=== PATIENT | female | born 1970 | race Caucasian/White ===

== ENCOUNTER 2017-10-23 05:35 | Emergency (ER) | payer BC ==
--- NOTE | 2017-10-23 06:04 | ED Physician Documentation ---
PD HPI SYNCOPE - Stated complaint Stated Complaint: FALL/SYNCOPE - Chief complaint Chief Complaint: Neuro - History obtained from History obtained from: Patient - History of Present Illness Witnessed: Unwitnessed Associated symptoms: None Injury occurred: Head injury Recently seen: Not recently seen - Additional information Additional information: Patient had some vodka last night. Early this morning, while sitting on the toilet, she fell asleep. This resulted in her falling forward, and she struck her face on the floor. She then got up and went to her bed, and while sitting on the edge of the bed, she slipped off, possibly due to falling asleep again, but did not sustain any injury. her chief complaint is neck pain that started when she fell off toilet. Review of Systems Eyes: reports: Reviewed and negative Cardiac: reports: Reviewed and negative GI: reports: Reviewed and negative Musculoskeletal: reports: Neck pain. denies: Back pain, Extremity pain Neurologic: reports: Head injury. denies: Focal weakness, Numbness, Confused, Altered mental status, Headache PD PAST MEDICAL HISTORY - Past Medical History Past Medical History: No - Allergies Allergies/Adverse Reactions: Allergies Allergy/AdvReac Type Severity Reaction Status Date / Time ciprofloxacin [From Cipro] AdvReac joint pain Verified 10/23/17 05:51 Sulfa (Sulfonamide AdvReac Hives Verified 10/23/17 05:50 Antibiotics) - Social History Does the pt smoke?: No PD ED PE NORMAL - Vitals Vital signs reviewed: Yes - General General: Alert and oriented X 3, No acute distress, Well developed/nourished - HEENT HEENT: PERRL, EOMI, Moist mucous membranes - Neck Neck: Other (mild midline , mid-level bony tenderness without step-off ) - Cardiac Cardiac: RRR, No murmur - Respiratory Respiratory: No respiratory distress, Clear bilaterally PD ED PE EXPANDED - HEENT HEENT: Other (.5 cm superficial horizontal abrasion philtrum) Results - Vitals Vitals: Oxygen O2 Source Room air - Rads (name of study) CT cervical spine Radiology: Prelim report reviewed, See rad report PD MEDICAL DECISION MAKING - ED course Complexity details: reviewed results, re-evaluated patient, considered differential, d/w patient Departure - Departure Disposition: 01 Home, Self Care Clinical Impression: Cervical strain Condition: Good Instructions: ED Sprain Strain Neck Discharge Date/Time: 10/23/17 08:15
--- NOTE | 2017-10-23 07:43 | CT Report ---
EXAM: CT CERVICAL SPINE WITHOUT CONTRAST DATE: 10/23/2017 07:19 AM. HISTORY: Fall, neck pain. COMPARISONS: None. TECHNIQUE: Thin-section axial images were acquired of the cervical spine without contrast. Post-proce ssing: Coronal and sagittal reformats. Other: None. In accordance with CT protocol optimization, one or more of the following dose reduction techniques w ere utilized for this exam: automated exposure control, adjustment of mA and/or KV based on patient s ize, or use of iterative reconstructive technique. FINDINGS: Alignment: There is subtle reversal of the normal lordotic curvature of the cervical spine which may be positional. Bones: Well-corticated bony fragment at the tip of the dens is thought to be chronic in nature. Interspace Levels/Facets: C1-C2: Unremarkable. C2-C3: Unremarkable. C3-C4: Unremarkable. C4-C5: Unremarkable. C5-C6: Severe degenerative disk disease with uncal hypertrophy and severe right neural foraminal narr owing. C6-C7: Unremarkable. C7-T1: Unremarkable. Musculature: Normal. No fatty atrophy. Other: The paravertebral and prevertebral soft tissues are unremarkable. The lung apices are clear. IMPRESSION: 1. No acute cervical spine fracture. 2. Well-corticated bony fragment at the tip of the dens is thought to be chronic in nature. 3. Severe degenerative disk disease with uncal hypertrophy and severe right neural foraminal narrowin g at C5-C6. [facility] Referring Provider Line: [phone] SITE ID: [id number]
[2017-10-23 08:15] VITALS: BP 128/74
== END 2017-10-23 08:15 | disposition home or self-care (01) ==
LOC: ED 05:35
DX: S16.1XXA Strain of muscle, fascia and tendon at neck level, initial encounter (principal); S00.81XA Abrasion of other part of head, initial encounter; M50.322 Other cervical disc degeneration at C5-C6 level; W18.12XA Fall from or off toilet with subsequent striking against object, initial encounter
CPT/HCPCS: 72125; 99282; 99283

== ENCOUNTER 2017-12-20 14:34 | Emergency (ER) | payer BC ==
[2017-12-20 14:57] VITALS: BP 139/91
[2017-12-20 15:35] LABS: BILIRUBIN,URINE NEGATIVE (NEGATIVE); GLUCOSE, URINE (UA) NEGATIVE (NEGATIVE); KETONES,URINE (UA) NEGATIVE (NEGATIVE); LEUKOCYTE ESTERASE, URINE LARGE (NEGATIVE); NITRITE,URINE NEGATIVE (NEGATIVE); OCCULT BLOOD,URINE LARGE (NEGATIVE); PROTEIN,URINE TRACE mg/dL (NEGATIVE); UROBILINOGEN,URINE 0.2 (NORMAL) E.U./dL (NORMAL)
[2017-12-20 15:39] LABS: CLARITY,URINE CLOUDY (CLEAR); HCG UR QUAL NEGATIVE
[2017-12-20 15:42] LABS: BACTERIA,URINE Many /HPF (None Seen); RBC,URINE TNTC /HPF (0-5); SQUAMOUS EPITHELIAL CELL,UR NONE SEEN (<= Few)
--- NOTE | 2017-12-20 16:17 | ED Physician Documentation ---
PD HPI FEMALE - Stated complaint Stated Complaint: ABD PX/FEM - Chief complaint Chief Complaint: UTI - History obtained from History obtained from: Patient - History of Present Illness Timing - onset: Yesterday Timing - duration: Days (2) Timing - details: Abrupt onset, Still present Associated symptoms: Dysuria, Urinary frequency. No: Fever, Abdominal pain, Back pain, Vaginal discharge, Genital sore/lesion Contributing factors: No: Exposed to STD Similar symptoms before: Diagnosis (uti) Recently seen: Not recently seen Review of Systems Constitutional: denies: Fever, Chills GI: denies: Vomiting : denies: Discharge Musculoskeletal: denies: Back pain PD PAST MEDICAL HISTORY - Past Medical History Cardiovascular: None Respiratory: None Neuro: Fainting Endocrine/Autoimmune: HyPOthyroidism, Systemic lupus erythematosus : None HEENT: None Psych: Depression Musculoskeletal: None Derm: None - Past Surgical History Past Surgical History: Yes Ortho: Carpal Tunnel surgery, 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 - Present Medications Home Medications: Ambulatory Orders Medication Instructions Recorded Confirmed Cephalexin [Keflex] 500 mg PO TID #20 capsule 12/20/17 Phenazopyridine [Pyridium] 200 mg PO TID PRN #15 tablet 12/20/17 - Allergies Allergies/Adverse Reactions: Allergies Allergy/AdvReac Type Severity Reaction Status Date / Time ciprofloxacin [From Cipro] AdvReac joint pain Verified 12/20/17 14:57 Sulfa (Sulfonamide AdvReac Hives Verified 12/20/17 14:57 Antibiotics) - Social History Does the pt smoke?: No Smoking Status: Never smoker Does the pt drink ETOH?: Yes Does the pt have substance abuse?: No - Immunizations Immunizations are current?: Yes Immunizations: TDAP current <10years - POLST Patient has POLST: No PD ED PE NORMAL - Vitals Vital signs reviewed: Yes - General General: Alert and oriented X 3, No acute distress, Well developed/nourished - Abdomen Abdomen: Soft, Non tender - Female Female : Deferred - Rectal Rectal: Deferred - Back Back: No CVA TTP - Derm Derm: Normal color, Warm and dry, No rash Results - Vitals Vitals: Oxygen O2 Source Room air - Labs Labs: Microbiology 12/20/17 15:05 Urine Culture - Preliminary Urine,Clean Catch CULTURE IN PROGRESS. RESULTS TO FOLLOW. Laboratory Tests 12/20/17 15:05 Urine Color YELLOW Urine Clarity CLOUDY Urine pH 6.0 Ur Specific [place] <=1.005 Urine Protein TRACE Urine Glucose (UA) NEGATIVE Urine Ketones NEGATIVE Urine Occult Blood LARGE H Urine Nitrite NEGATIVE Urine Bilirubin NEGATIVE Urine Urobilinogen 0.2 (NORMAL) Ur Leukocyte Esterase LARGE H Urine RBC TNTC H Urine WBC >25 H Ur Squamous Epith Cells NONE SEEN Urine Bacteria Many H Ur Microscopic Review INDICATED Urine Culture Comments INDICATED Urine HCG, Qual NEGATIVE PD MEDICAL DECISION MAKING - ED course Complexity details: reviewed results (UA is positive correlating with symptoms.) , considered differential, d/w patient - Sepsis Event Vital Signs: Oxygen O2 Source Room air Departure - Departure Disposition: Home, Self Care Clinical Impression: Urinary tract infection Qualifiers: Urinary tract infection type: acute cystitis Hematuria presence: without hematuria Qualified Code(s): N30.00 - Acute cystitis without hematuria Condition: Stable Record reviewed to determine appropriate education?: Yes Instructions: ED UTI Cystitis Female Follow-Up: Kiara Albert ARNP [Primary Care Provider] - Prescriptions: Cephalexin [Keflex] 500 mg PO TID #20 capsule Phenazopyridine [Pyridium] 200 mg PO TID PRN #15 tablet PRN Reason: Pain Comments: Drink lots of fluids. Tylenol or ibuprofen if needed for pains. He can use phenazopyridine if needed for discomfort of urination. Keflex as directed for the infection. Recheck if not improving over the next few days. Discharge Date/Time: 12/20/17 16:39
[2017-12-20] MEDS ORDERED: IBUPROFEN 400 MG TABLET PO STA (16:26)
[2017-12-20] MEDS ORDERED: cephALEXin 250 MG CAPSULE PO STA (16:26)
== END 2017-12-20 16:39 | disposition home or self-care (01) ==
LOC: ED 14:34
DX: N30.00 Acute cystitis without hematuria (principal)
CPT/HCPCS: 81001; 81025; 87086; 99283; A9270; 81003

== ENCOUNTER 2020-06-28 20:53 | Emergency (ER) | payer BC ==
[2020-06-28] MEDS ORDERED: ONDANSETRON 4 MG/2 ML VIAL IVP STA (21:07)
[2020-06-28] MEDS ORDERED: SODIUM CHLORIDE 0.9% 1,000 ML IV STA (21:07)
[2020-06-28 21:20] LABS: BASOPHILS % (AUTO) 0.3 %; HGB - HEMOGLOBIN 13.4 g/dL (12.0-16.0); LYMPHOCYTES # (AUTO) 0.5 10^3/uL (1.5-3.5); LYMPHOCYTES % (AUTO) 15.3 %; MEAN CORPUSCULAR HGB CONC 33.8 g/dL (32.0-36.0); MEAN CORPUSCULAR VOLUME 100.5 fL (81.0-99.0); MEAN PLATELET VOLUME 8.7 fL (7.9-10.8); MONOCYTES # (AUTO) 0.4 10^3/uL (0.0-1.0); MONOCYTES % (AUTO) 13.3 %; NEUTROPHILS # (AUTO) 2.2 10^3/uL (1.5-6.6); NEUTROPHILS % (AUTO) 70.8 %; PLT - PLATELET COUNT 163 10^3/uL (130-450); RED BLOOD COUNT 3.94 10^6/uL (4.20-5.40); RED CELL DISTRIBUTION WIDTH 12.6 % (12.0-15.0); WHITE BLOOD COUNT 3.1 x10^3/uL (4.8-10.8)
[2020-06-28 21:33] LABS: ALBUMIN 4.9 g/dL (3.2-5.5); ALBUMIN/GLOBULIN RATIO 1.4 (1.0-2.2); BILIRUBIN,TOTAL 1.3 mg/dL (0.2-1.0); CALCIUM 9.8 mg/dL (8.5-10.3); CREATININE 0.8 mg/dL (0.4-1.0); TOTAL PROTEIN 8.4 g/dL (6.7-8.2)
[2020-06-28] MEDS ORDERED: FOLIC ACID INJ 1 MG, THIAMINE INJ 100 MG, MAGNESIUM SULFATE 2 GM, MULTIVITAMIN 10 ML in... IV STA ×5 (22:34)
[2020-06-28] MEDS ORDERED: LORazepam 2 MG/ML VIAL IVP STA (22:35)
--- NOTE | 2020-06-28 22:37 | ED Physician Documentation ---
PD HPI NVD - Stated complaint Stated Complaint: VOMITING/DIZZY - Chief complaint Chief Complaint: Abd Pain - History obtained from History obtained from: Patient - History of Present Illness Timing - onset: How many days ago (2) Timing - duration: Days (2) Timing - details: Gradual onset, Still present Associated symptoms: Other (chills). No: Fever, Abdominal pain, Chest pain, Hematemesis Contributing factors: Alcohol use, Other (has shoulder injury and is out of work taking ibuprofen) Improved by: Vomiting, BM Similar symptoms before: Has not had sx before Recently seen: Not recently seen - Additonal information Additional information: 49-year-old female who works for the [employer] has been out of work since with a shoulder injury. 2 days ago she developed nausea and vomiting and has had persistence of vomiting for 2 days. She had been constipated for about 1 week and today she had a normal bowel movement. She has not had abdominal pain with this. She has been using some ibuprofen but has not taken any in over a week and she does drink alcohol states that she has not had a drink in 2 days and usually she has 2 drinks a night. Review of Systems Constitutional: denies: Fever Eyes: denies: Decreased vision Ears: denies: Ear pain Nose: denies: Rhinorrhea / runny nose, Congestion Throat: denies: Sore throat Cardiac: denies: Chest pain / pressure, Palpitations Respiratory: denies: Dyspnea, Cough GI: reports: Nausea, Vomiting, Constipation. 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 - Present Medications Home Medications: Ambulatory Orders Medication Instructions Recorded Confirmed Levothyroxine [Synthroid] 75 05/31/18 Losartan [Cozaar] 0 mg 05/31/18 buPROPion [Wellbutrin Sr] 1 05/31/18 cephALEXin [Keflex] 500 mg PO Q6H #24 capsule 12/25/18 traMADol [Ultram] 50 05/31/18 LORazepam [Ativan] 1 - 2 mg PO Q6HR PRN #20 tablet 06/29/20 Ondansetron Odt [Zofran] 4 mg TL Q6H PRN #10 tablet 06/29/20 - Allergies Allergies/Adverse Reactions: Allergies Allergy/AdvReac Type Severity Reaction Status Date / Time ciprofloxacin [From Cipro] AdvReac joint pain Verified 06/28/20 21:07 Sulfa (Sulfonamide AdvReac Hives Verified 06/28/20 21:07 Antibiotics) - Social History Does the pt smoke?: No Smoking Status: Never smoker Does the pt drink ETOH?: Yes Does the pt have substance abuse?: No - Immunizations Immunizations are current?: Yes Immunizations: TDAP current <10years - POLST Patient has POLST: No PD ED PE NORMAL - Vitals Vital signs reviewed: Yes (tachy and hypertensive ) - General General: Alert and oriented X 3, Well developed/nourished, Other (appears anxious has "the shakes" seems more like withdrawal than "chills") - HEENT HEENT: Atraumatic, PERRL, EOMI - Neck Neck: Supple, no meningeal sign, No bony TTP - Cardiac Cardiac: No murmur, Other (tachy to 100) - Respiratory Respiratory: No respiratory distress, Clear bilaterally - Abdomen Abdomen: Normal bowel sounds, Soft, Non tender, Non distended, No organomegaly - Back Back: No CVA TTP, No spinal TTP - Derm Derm: Normal color, Warm and dry, No rash - Extremities Extremities: No deformity, No edema - Neuro Neuro: Alert and oriented X 3, director of vital statistics 2-12 intact, No motor deficit, No sensory deficit, Normal speech Eye Opening: Spontaneous Motor: Obeys Commands Verbal: Oriented GCS Score: 15 - Psych Psych: Normal mood, Normal affect Results - Vitals Vitals: Vital Signs - 24 hr 06/28/20 06/28/20 06/28/20 21:05 21:06 21:37 Temperature 37.1 C 37.1 C 37.1 C Heart Rate 102 H 102 H 100 Respiratory 17 17 17 Rate Blood Pressure 153/85 H 153/85 H 145/86 H O2 Saturation 100 100 06/28/20 23:06 Temperature 37.1 C Heart Rate 98 Respiratory 16 Rate Blood Pressure 138/85 H O2 Saturation 97 Oxygen O2 Source Room air - Labs Labs: Laboratory Tests 06/28/20 06/28/20 21:14 21:14 WBC 3.1 L RBC 3.94 L Hgb 13.4 Hct 39.6 MCV 100.5 H MCH 34.0 H MCHC 33.8 RDW 12.6 Plt Count 163 MPV 8.7 Neut # (Auto) 2.2 Lymph # (Auto) 0.5 L [place] # (Auto) 0.4 Eos # (Auto) 0.0 Baso # (Auto) 0.0 Absolute Nucleated RBC 0.00 Nucleated RBC % 0.0 Sodium 136 Potassium 4.1 Chloride 88 L Carbon Dioxide 31 Anion Gap 17.0 H BUN 8 Creatinine 0.8 Estimated GFR (MDRD) 77 L Glucose 128 H Calcium 9.8 Total Bilirubin 1.3 H AST 105 H ALT 95 H Alkaline Phosphatase 89 Total Protein 8.4 H Albumin 4.9 Globulin 3.5 Albumin/Globulin Ratio 1.4 Lipase 36 Procedures - IVC sono (time) 2119 Bedside IVC sono: IVC measures (cm) (0.88), Dehydration (est 2 liter deficit) PD MEDICAL DECISION MAKING - ED course Complexity details: reviewed old records, reviewed results, re-evaluated patient, considered differential, d/w patient ED course: 49-year-old female presents with nausea and vomiting and of 2 days duration appears dehydrated on interrogation the inferior vena cava. She is administered saline feels some improved and she is noted to have shakes and there is evidence of excessive alcohol consumption both by history and by laboratory evaluation of the liver functions. I shared the laboratory evaluation of liver functions with the patient and indicated to her that I thought she might benefit from treatment of withdrawal and she agreed. We have administered a banana bag and Ativan as well. Departure - Departure Disposition: 01 Home, Self Care Clinical Impression: Vomiting Qualifiers: Vomiting type: unspecified Vomiting Intractability: non-intractable Nausea presence: with nausea Qualified Code(s): R11.2 - Nausea with vomiting, unspecified Alcohol withdrawal Qualifiers: Complication of substance-induced condition: uncomplicated Qualified Code(s): F10.230 - Alcohol dependence with withdrawal, uncomplicated Condition: Stable Instructions: ED Diet Vomiting Diarrhea, ED Withdrawal Alcohol Follow-Up: Kiara Albert ARNP [Primary Care Provider] - Prescriptions: LORazepam [Ativan] 1 - 2 mg PO Q6HR PRN #20 tablet PRN Reason: withdrawal Ondansetron Odt [Zofran] 4 mg TL Q6H PRN #10 tablet PRN Reason: Nausea / Vomiting
[2020-06-28] MEDS ORDERED: MAGNESIUM SULFATE 1 GM/2 ML VIAL ONE (22:49)
[2020-06-28] MEDS ORDERED: FOLIC ACID 5 MG/1 ML 10ML MDV ONE (22:49)
[2020-06-28] MEDS ORDERED: THIAMINE 100 MG/1 ML 2 ML MDV ONE (22:49)
[2020-06-29] MEDS ORDERED: ONDANSETRON ODT 4 MG Prepack 2 TL PRN (00:52)
[2020-06-29 01:10] VITALS: BP 136/79
== END 2020-06-29 01:08 | disposition home or self-care (01) ==
LOC: ED 20:53
DX: F10.230 Alcohol dependence with withdrawal, uncomplicated (principal); E86.0 Dehydration; R11.10 Vomiting, unspecified
CPT/HCPCS: 80053; 83690; 85025; 96361; 96365; 96375; 99284; J2060; J3411; 36415

== ENCOUNTER 2021-04-30 14:17 | Outpatient (CLI) | payer BC ==
[2021-04-30 14:37] LABS: BASOPHILS % (AUTO) 0.5 %; HCT - HEMATOCRIT 40.5 % (37.0-47.0); LYMPHOCYTES # (AUTO) 0.3 10^3/uL (1.5-3.5); LYMPHOCYTES % (AUTO) 17.7 %; MEAN CORPUSCULAR HEMOGLOBIN 35.4 pg (27.0-31.0); MEAN CORPUSCULAR HGB CONC 34.6 g/dL (32.0-36.0); MEAN CORPUSCULAR VOLUME 102.3 fL (81.0-99.0); MEAN PLATELET VOLUME 8.6 fL (7.9-10.8); MONOCYTES # (AUTO) 0.5 10^3/uL (0.0-1.0); MONOCYTES % (AUTO) 24.2 %; NEUTROPHILS # (AUTO) 1.1 10^3/uL (1.5-6.6); NEUTROPHILS % (AUTO) 57.1 %; PLT - PLATELET COUNT 243 10^3/uL (130-450); RED BLOOD COUNT 3.96 10^6/uL (4.20-5.40); RED CELL DISTRIBUTION WIDTH 11.9 % (12.0-15.0)
[2021-04-30 14:48] LABS: WHITE BLOOD COUNT 1.9 x10^3/uL (4.8-10.8)
[2021-04-30 14:52] LABS: ALBUMIN 4.8 g/dL (3.2-5.5); ALBUMIN/GLOBULIN RATIO 1.4 (1.0-2.2); ALKALINE PHOSPHATASE 68 IU/L (42-121); ALT ALANINE AMINOTRANSFERASE 30 IU/L (10-60); AST ASPARTATE AMINOTRANSFERASE 41 IU/L (10-42); BILIRUBIN,TOTAL 0.9 mg/dL (0.2-1.0); BUN - BLOOD UREA NITROGEN < 5 mg/dL (6-20); CALCIUM 9.2 mg/dL (8.5-10.3); CARBON DIOXIDE - CO2 30 mmol/L (21-32); CHLORIDE 88 mmol/L (101-111); CREATININE 0.6 mg/dL (0.4-1.0); CRP - C-REACTIVE PROTEIN < 1.0 mg/dL (0-1.0); GFR - MDRD 106 (>89); GLUCOSE 105 mg/dL (70-100); POTASSIUM 3.7 mmol/L (3.5-5.0); SODIUM 129 mmol/L (135-145); TOTAL PROTEIN 8.2 g/dL (6.7-8.2)
[2021-05-02 13:01] LABS: DNA (DS) ANTIBODY 6 IU/mL
[2021-05-02 13:21] LABS: COMPLEMENT COMPONENT C3C 93 mg/dL (83-193); COMPLEMENT COMPONENT C4C 19 mg/dL (15-57)
== END 2021-04-30 14:18 | disposition home or self-care (01) ==
LOC: LAB 14:17
PROVIDERS: ATTEND Internal Medicine Rheumatology
DX: M32.9 Systemic lupus erythematosus, unspecified (principal)
CPT/HCPCS: 36415; 80053; 85025; 85651; 86140; 86160; 86225

== ENCOUNTER 2021-08-11 16:30 | Outpatient (CLI) | payer BC | END 2021-08-11 23:59 | disposition home or self-care (01) | LOC: LAB.S 16:30 | PROVIDERS: ATTEND Physician Assistant Medical | DX: R68.83 Chills (without fever) (principal); R11.2 Nausea with vomiting, unspecified; Z20.822 Contact with and (suspected) exposure to COVID-19 ==

== ENCOUNTER 2021-11-17 08:00 | Outpatient (CLI) | payer BC ==
--- NOTE | 2021-11-17 16:44 | XRAY Report ---
PROCEDURE: Shoulder 3 View LT INDICATIONS: STRAIN OF LEFT SHOULDER TECHNIQUE: 4 views of the shoulder were acquired. COMPARISON: None. FINDINGS: Bones: No fractures or dislocations. Mild degenerative changes are present at the acromioclavicular joint. There are small inferior humeral head osteophytes. No suspicious bony lesions. Visualized rib s appear intact. Soft tissues: No suspicious soft tissue calcifications. IMPRESSION: Degenerative change of the acromioclavicular and glenohumeral joint. No acute radiograph ic findings. Reviewed by: Laura Anderson MD on 11/17/2021 4:43 PM PDT Approved by: Laura Anderson MD on 11/17/2021 4:43 PM PDT Station ID: [id number]
== END 2021-11-17 23:59 | disposition home or self-care (01) ==
LOC: DI.S 08:00
PROVIDERS: ATTEND Emergency Medicine
DX: M19.012 Primary osteoarthritis, left shoulder (principal)

== ENCOUNTER 2022-01-07 17:36 | Emergency (ER) | payer BC ==
[2022-01-07] MEDS ORDERED: SODIUM CHLORIDE 0.9% 1,000 ML IV STA (17:45)
--- OUTSIDE RECORDS SUMMARY | 2022-01-07 18:12 | EXTERNAL MEDICAL SUMMARY RPT | Continuity of Care Document ---
:1970 Author Organization [place] Address [address] [place] [address] Phone Allergies and Intolerances date description facility type (no date) [facility] Encounters No information. Functional Status No information. Immunizations No information. Medications No information. Problems No information. Procedures date description facility [id number] Visit Code Hold [facility] [phone] Visit Code Hold [facility] [phone] XR SHOULDER 2-3 VIEW [facility] Results/Labs No information. Social History date description facility [id number] Never smoker [facility] [phone] Never smoker [facility] Vital Signs date measurement value units [id number]+0000 BMI BMI 26.98 kg/m2 [id number]+0000 BP_diastolic BP_diastolic 87 mm[H g] [id number]+0000 BP_systolic BP_systolic 139 mm[Hg] [id number]+0000 heart_rate heart_rate 102 /min 15515599610519+0000 height_metric height_metric 157.48 cm [id number]+0000 height_standard height_standard 62 in [id number]+0000 respiration_rate respiration_rate 16 /min [id number]+0000 temperature_metric temperature_metric 36.44 C [id number]+0000 temperature_standard temperature_standard 9 7.6 F [id number]+0000 weight_metric weight_metric 66.68 kg 53418463616513+0000 weight_standard weight_standard 147 lb [id number]+0000 BMI BMI 26.62 kg/m2 25331771731348+0000 BP_diastolic BP_diastolic 91 mm[H g] 30669507861323+0000 BP_systolic BP_systolic 148 mm[Hg] +0000 heart_rate heart_rate 93 /min +0000 height_metric height_metric 157.48 cm +0000 height_standard height_standard 62 in +0000 respiration_rate respiration_rate 16 /min +0000 temperature_metric temperature_metric 37 C +0000 temperature_standard temperature_standard 9 8.6 F +0000 weight_metric weight_metric 65.77 kg +0000 weight_standard weight_standard 145 lb
[2022-01-07] MEDS ORDERED: LACTATED RINGERS 1,000 ML IV STA (18:14)
--- NOTE | 2022-01-07 18:17 | ED Physician Documentation ---
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 Since then she developed vertigo and every time she sits up she is vomited. She went to her doctors today and they did labs which were notable for a creatinine of 2.7 and a GFR of 16, usually her kidney function is normal. She is actually feeling much better today with only minimal nausea. She denies pain. 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 - Present Medications Home Medications: Ambulatory Orders Medication Instructions Recorded Confirmed Levothyroxine [Synthroid] 75 05/31/18 Losartan [Cozaar] 0 mg 05/31/18 buPROPion [Wellbutrin Sr] 1 05/31/18 cephALEXin [Keflex] 500 mg PO Q6H #24 capsule 05/31/18 traMADol [Ultram] 50 05/31/18 LORazepam [Ativan] 1 - 2 mg PO Q6HR PRN #20 tablet 06/29/20 Ondansetron Odt [Zofran] 4 mg TL Q6H PRN #10 tablet 06/29/20 - Allergies Allergies/Adverse Reactions: Allergies Allergy/AdvReac Type Severity Reaction Status Date / Time ciprofloxacin [From Cipro] AdvReac joint pain Verified 01/07/22 17:57 Sulfa (Sulfonamide AdvReac Hives Verified 01/07/22 17:57 Antibiotics) - Social History Does the pt smoke?: No Smoking Status: Never smoker Does the pt drink ETOH?: Yes Does the pt have substance abuse?: No - Immunizations Immunizations are current?: Yes Immunizations: TDAP current <10years - POLST Patient has POLST: No PD ED PE NORMAL - Vitals Vital signs reviewed: Yes (Mild resting tachycardia) - General General: Alert and oriented X 3, No acute distress - HEENT HEENT: PERRL, EOMI, Ears normal, Dentition benign - Neck Neck: Supple, no meningeal sign, No bony TTP - Cardiac Cardiac: RRR, No murmur - Respiratory Respiratory: No respiratory distress, Clear bilaterally - Abdomen Abdomen: Soft, Non tender - Derm Derm: Normal color, Warm and dry - Extremities Extremities: No edema, No calf tenderness / cord - Neuro Neuro: Normal speech - Psych Psych: Normal mood, Normal affect Results - Vitals Vitals: Vital Signs - 24 hr 01/07/22 01/07/22 17:57 19:07 Temperature 37.3 C Heart Rate 103 H 96 Respiratory 18 16 Rate Blood Pressure 154/93 H 137/71 H O2 Saturation 100 98 Oxygen O2 Source Room air - Labs Labs: Laboratory Tests 01/07/22 01/07/22 18:21 18:21 WBC 3.0 L RBC 3.47 L Hgb 12.2 Hct 35.1 L MCV 101.2 H MCH 35.2 H MCHC 34.8 RDW 12.9 Plt Count 202 MPV 9.2 Neut # (Auto) 1.9 Lymph # (Auto) 0.6 L [place] # (Auto) 0.5 Eos # (Auto) 0.0 Baso # (Auto) 0.0 Absolute Nucleated RBC 0.00 Nucleated RBC % 0.0 Sodium 124 L Potassium 3.4 L Chloride 85 L Carbon Dioxide 27 Anion Gap 12.0 BUN 20 Creatinine 3.0 H Estimated GFR (MDRD) 17 L Glucose 96 Calcium 8.9 Phosphorus 2.4 L Magnesium 1.5 L Total Bilirubin 1.7 H AST 38 ALT 27 Alkaline Phosphatase 100 Total Protein 7.8 Albumin 4.6 Globulin 3.2 Albumin/Globulin Ratio 1.4 PD MEDICAL DECISION MAKING - ED course ED course: 51-year-old woman has been having vertigo and vomiting ever since iwona COVID a month ago. Now sent in by her physician with elevated creatinine today. Here her labs show creatinine out of proportion to her BUN with chronic lymphopenia. She is already feeling better and was hydrated here with 2 L of fluid. We discussed avoidance of NSAIDs and decreasing free water and adding sodium/potassium containing fluids. We also discussed the need for rapid follow-up and repeat labs, potential nephrology referral. Departure - Departure Disposition: 01 Home, Self Care Clinical Impression: RUDDY (acute kidney injury) Condition: Good Record reviewed to determine appropriate education?: Yes Instructions: ED Insufficiency Renal Comments: As discussed, your kidney function has gone downhill but I am not convinced that it is from dehydration because your BUN is high normal as opposed to I would expect it to be very high if the kidney issue was related to dehydration. It is a possibility that this could be related to her lupus or some other condition. Either way you need to have labs redrawn with your primary care physician I would say Wednesday or Wednesday. Until then, since her sodium was on the low side and your potassium was on the low side I would make sure to drink fluids other than plain water such as Gatorade or electrolyte mixture. Avoid nonsteroidal anti-inflammatory drugs (NSAIDs) such as ibuprofen/Aleve/naproxen/Motrin/Advil.
[2022-01-07 18:33] LABS: BASOPHILS % (AUTO) 0.3 %; HCT - HEMATOCRIT 35.1 % (37.0-47.0); HGB - HEMOGLOBIN 12.2 g/dL (12.0-16.0); LYMPHOCYTES # (AUTO) 0.6 10^3/uL (1.5-3.5); LYMPHOCYTES % (AUTO) 18.2 %; MEAN CORPUSCULAR HEMOGLOBIN 35.2 pg (27.0-31.0); MEAN CORPUSCULAR HGB CONC 34.8 g/dL (32.0-36.0); MEAN CORPUSCULAR VOLUME 101.2 fL (81.0-99.0); MEAN PLATELET VOLUME 9.2 fL (7.9-10.8); MONOCYTES # (AUTO) 0.5 10^3/uL (0.0-1.0); MONOCYTES % (AUTO) 17.2 %; NEUTROPHILS # (AUTO) 1.9 10^3/uL (1.5-6.6); PLT - PLATELET COUNT 202 10^3/uL (130-450); RED BLOOD COUNT 3.47 10^6/uL (4.20-5.40); RED CELL DISTRIBUTION WIDTH 12.9 % (12.0-15.0)
[2022-01-07 18:39] LABS: ALBUMIN 4.6 g/dL (3.2-5.5); ALBUMIN/GLOBULIN RATIO 1.4 (1.0-2.2); BILIRUBIN,TOTAL 1.7 mg/dL (0.2-1.0); CALCIUM 8.9 mg/dL (8.5-10.3); MAGNESIUM 1.5 mg/dL (1.7-2.8); PHOSPHORUS 2.4 mg/dL (2.5-4.6); POTASSIUM 3.4 mmol/L (3.5-5.0); TOTAL PROTEIN 7.8 g/dL (6.7-8.2)
[2022-01-07 20:32] VITALS: BP 149/79
== END 2022-01-07 20:36 | disposition home or self-care (01) ==
LOC: ED 17:36
DX: N17.9 Acute kidney failure, unspecified (principal); M32.9 Systemic lupus erythematosus, unspecified
CPT/HCPCS: 36415; 80053; 83735; 84100; 85025; 96360; 96361; 99283; J7120

== ENCOUNTER 2022-04-26 16:20 | Emergency (ER) | payer BC ==
--- OUTSIDE RECORDS SUMMARY | 2022-04-26 17:12 | EXTERNAL MEDICAL SUMMARY RPT | Continuity of Care Document ---
:1970 Author Organization [facility] Address [address] [place] [address] Phone Care Team Providers Name Role Phone Unavailable Unavailable Unavailable Shalonda Messina Pa-C Unavailable Unavailable Allergies No information. Encounters No information. Functional Status No information. Immunizations No information. Medications date description facility [id number]+0000 tramadol [facility] [phone]+0000 tramadol [facility] [phone]+0000 tramadol [facility] [id number]+0000 bupropion hcl [facility] [phone]+0000 bupropion hcl [facility] [phone]+0000 bupropion hcl [facility] [id number]+0000 levothyroxine [facility] [id number]+0000 levothyroxine [facility] [id number]+0000 levothyroxine [facility] [id number]+0000 bupropion hcl [facility] [id number]+0000 bupropion hcl [facility] [phone]+0000 bupropion hcl [facility] [id number]+0000 levothyroxine [facility] [id number]+0000 levothyroxine [facility] [id number]+0000 levothyroxine [facility] [id number]+0000 levothyroxine [facility] [id number]+0000 levothyroxine [facility] [id number]+0000 levothyroxine [facility] [id number]+0000 losartan [facility] [phone]+0000 losartan [facility] [id number]+0000 losartan [facility] [id number]+0000 tramadol [facility] [id number]+0000 tramadol [facility] [id number]+0000 tramadol [facility] [id number]+0000 losartan [facility] [id number]+0000 losartan [facility] [id number]+0000 losartan [facility] [id number]+0000 bupropion hcl [facility] [id number]+0000 bupropion hcl [facility] [id number]+0000 bupropion hcl [facility] [id number]+0000 bupropion hcl [facility] [id number]+0000 bupropion hcl [facility] [id number]+0000 bupropion hcl [facility] [id number]+0000 tramadol [facility] [id number]+0000 tramadol [facility] [id number]+0000 tramadol [facility] [id number]+0000 losartan [facility] [id number]+0000 losartan [facility] [id number]+0000 losartan [facility] [id number]+0000 tramadol [facility] [phone]+0000 tramadol [facility] [id number]+0000 tramadol [facility] [id number]+0000 bupropion hcl [facility] [phone]+0000 bupropion hcl [facility] [id number]+0000 bupropion hcl [facility] [id number]+0000 bupropion hcl [facility] [id number]+0000 bupropion hcl [facility] [id number]+0000 bupropion hcl [facility] [id number]+0000 levothyroxine [facility] [phone]+0000 levothyroxine [facility] [id number]+0000 levothyroxine [facility] [phone]+0000 losartan [facility] [phone]+0000 losartan [facility] [phone]+0000 losartan [facility] [phone]+0000 bupropion hcl [facility] [id number]+0000 bupropion hcl [facility] [phone]+0000 bupropion hcl [facility] [id number]+0000 bupropion hcl [facility] [phone]+0000 bupropion hcl [facility] [phone]+0000 bupropion hcl [facility] Problems No information. Procedures date description facility [id number]+0000 Visit Code Hold [facility] aissatou [id number]+0000 COVID, FLU A+B Antigen (In [facility] Free Test) [facility] Results/Labs No information. Social History date description facility +0000 Never smoker [facility] Vital Signs date measurement value units [id number]+0000 BMI BMI 26.62 kg/m2 [id number]+0000 BP_diastolic BP_diastolic 99 mmHg [id number]+0000 BP_systolic BP_systolic 158 mmHg [id number]+0000 heart_rate heart_rate 114 /min [id number]+0000 height_metric height_metric 157.48 cm [id number]+0000 height_standard height_standard 62 in [id number]+0000 respiration_rate respiration_rate 15 /min [id number]+0000 temperature_metric temperature_metric 36.44 C [id number]+0000 temperature_standard temperature_standard 9 7.6 F [id number]+0000 weight_metric weight_metric 65.77 kg [id number]+0000 weight_standard weight_standard 145 lb
[2022-04-26 17:58] LABS: BILIRUBIN,URINE NEGATIVE (NEGATIVE); GLUCOSE, URINE (UA) NEGATIVE (NEGATIVE); KETONES,URINE (UA) 40 mg/dL (NEGATIVE); LEUKOCYTE ESTERASE, URINE NEGATIVE (NEGATIVE); NITRITE,URINE NEGATIVE (NEGATIVE); OCCULT BLOOD,URINE TRACE-INTA (NEGATIVE); PROTEIN,URINE NEGATIVE (NEGATIVE); UROBILINOGEN,URINE 0.2 (NORMAL) E.U./dL (NORMAL)
[2022-04-26 18:01] LABS: CLARITY,URINE CLEAR (CLEAR)
[2022-04-26 18:02] LABS: HCG UR QUAL NEGATIVE
--- NOTE | 2022-04-26 18:16 | ED Physician Documentation ---
History of Present Illness - Stated complaint Stated Complaint: FEMALE - Chief complaint Chief Complaint: UTI - History obtained from History obtained from: Patient - History of Present Illness Timing: How many days ago (2) Pain level max: 2 Pain level now: 1 - Additonal information Additional information: Patient is a 51-year-old female who presents to the emergency department stating that she has had mild dysuria for the past 2 to 3 days. Intermittent. She also has been feeling increasingly stressed and anxious. Denies suicidal or homicidal ideation. No hallucinations. She states that she has only been taking her Wellbutrin intermittently. She did take this today. She does have a primary care provider and is working on a counselor. She cites issues at work has been her main stressor. Nothing makes it better or worse. No fever. No chills. No back pain. 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 - Present Medications Home Medications: Ambulatory Orders Medication Instructions Recorded Confirmed Levothyroxine [Synthroid] 75 05/31/18 Losartan [Cozaar] 0 mg 05/31/18 buPROPion [Wellbutrin Sr] 1 05/31/18 cephALEXin [Keflex] 500 mg PO Q6H #24 capsule 05/31/18 traMADol [Ultram] 50 05/31/18 LORazepam [Ativan] 1 - 2 mg PO Q6HR PRN #20 tablet 06/29/20 Ondansetron Odt [Zofran] 4 mg TL Q6H PRN #10 tablet 06/29/20 ALPRAZolam [Alprazolam] 0.5 mg PO Q8H PRN #10 tablet 04/26/22 - Allergies Allergies/Adverse Reactions: Allergies Allergy/AdvReac Type Severity Reaction Status Date / Time ciprofloxacin [From Cipro] AdvReac joint pain Verified 04/26/22 16:45 Sulfa (Sulfonamide AdvReac Hives Verified 04/26/22 16:45 Antibiotics) - Social History Does the pt smoke?: No Smoking Status: Never smoker Does the pt drink ETOH?: Yes Does the pt have substance abuse?: No - Immunizations Immunizations are current?: Yes Immunizations: TDAP current <10years - POLST Patient has POLST: No PD ED PE NORMAL - Vitals Vital signs reviewed: Yes - General General: Alert and oriented X 3, No acute distress, Well developed/nourished - HEENT HEENT: Moist mucous membranes - Neck Neck: Supple, no meningeal sign - Cardiac Cardiac: RRR, Strong equal pulses - Respiratory Respiratory: No respiratory distress, Clear bilaterally - Abdomen Abdomen: Soft, Non tender, Non distended - Derm Derm: Warm and dry - Extremities Extremities: No edema - Neuro Neuro: Alert and oriented X 3, sheeter operator 2-12 intact, No motor deficit, No sensory deficit, Normal speech Eye Opening: Spontaneous Motor: Obeys Commands Verbal: Oriented GCS Score: 15 - Psych Psych: Normal mood, Other (tearful) Results - Vitals Vitals: Vital Signs - 24 hr 04/26/22 04/26/22 16:40 18:31 Temperature 37.1 C Heart Rate 124 H 78 Respiratory 20 16 Rate Blood Pressure 171/94 H 168/77 H O2 Saturation 99 100 Oxygen O2 Source Room air - Labs Labs: Laboratory Tests 04/26/22 17:01 Urine Color YELLOW Urine Clarity CLEAR Urine pH 6.0 Ur Specific Perry >=1.030 H Urine Protein NEGATIVE Urine Glucose (UA) NEGATIVE Urine Ketones 40 H Urine Occult Blood TRACE-INTA Urine Nitrite NEGATIVE Urine Bilirubin NEGATIVE Urine Urobilinogen 0.2 (NORMAL) Ur Leukocyte Esterase NEGATIVE Ur Microscopic Review NOT INDICATED Urine Culture Comments NOT INDICATED Urine HCG, Qual NEGATIVE PD MEDICAL DECISION MAKING - ED course Complexity details: reviewed results, re-evaluated patient, considered differential, d/w patient ED course: 51-year-old female with dysuria, no acute findings of UTI. No vaginal bleeding. Declines pelvic exam. She also has feeling increasingly stressed and anxious. Social work is not available today. She would like something to help with anxiety. Will prescribe a small amount of medication for her. She is not suicidal or homicidal. No hallucinations. She will follow-up with her doctor for further care. Crisis line information will be provided. Patient counseled regarding signs and symptoms for which I believe and urgent re-evaluation would be necessary. Patient with good understanding of and agreement to plan and is comfortable going home at this time This document was made in part using voice recognition software. While efforts are made to proofread this document, sound alike and grammatical errors may occur. Departure - Departure Disposition: 01 Home, Self Care Clinical Impression: Dysuria, Anxiety Condition: Good Instructions: ED Dysuria Uncertain Cause, ED Panic Attack Follow-Up: Kiko Steinberg MD [Primary Care Provider] - Within 1 week Prescriptions: ALPRAZolam [Alprazolam] 0.5 mg PO Q8H PRN #10 tablet PRN Reason: anxiety Comments: Your prescription was sent to [facility] in [place]. Please follow-up with your doctor for further care. Please return if you worsen. Do not drive or operate heavy machinery while taking the Xanax. Crisis Line and is available to talk to someone [email or web address] is also available to chat with someone online if you prefer. There are also many resources on this website and apps for your phone to help with your mental health You can also text the word START to [phone] to chat with someome via text. Forms: Activity restrictions Discharge Date/Time: 04/26/22 18:32
[2022-04-26 18:31] VITALS: BP 168/77
== END 2022-04-26 18:32 | disposition home or self-care (01) ==
LOC: ED 16:20
DX: R30.0 Dysuria (principal); F41.9 Anxiety disorder, unspecified
CPT/HCPCS: 81001; 81003; 81025; 87086; 99283; 99284

== ENCOUNTER 2022-08-18 15:48 | Emergency (ER) | payer BC ==
--- NOTE | 2022-08-18 16:44 | ED Physician Documentation ---
History of Present Illness - Stated complaint Stated Complaint: GLF, HIT HEAD - Chief complaint Chief Complaint: Trauma Hd/Nk - Additonal information Additional information: Patient is 51-year-old female presenting to the emergency department with head trauma. Reports that she fell Wednesday. Reports that she is a heavy drinker and was intoxicated at that time. Believes that she lost consciousness. Fall occurred in her bathroom. Presents today with ongoing headache and neck pain. Is refusing c-collar at this time. Requests work note. Review of Systems Constitutional: denies: Fever Eyes: denies: Loss of vision Ears: denies: Loss of hearing Nose: denies: Rhinorrhea / runny nose Throat: denies: Dental pain / toothache Cardiac: denies: Chest pain / pressure Respiratory: denies: Dyspnea GI: denies: Abdominal Pain : denies: Dysuria Skin: denies: Rash Musculoskeletal: reports: Neck pain PD PAST MEDICAL HISTORY - Past Medical History Cardiovascular: None Respiratory: None Neuro: Fainting Endocrine/Autoimmune: HyPOthyroidism, Systemic lupus erythematosus : None HEENT: None Psych: Depression Musculoskeletal: None Derm: None - Past Surgical History Past Surgical History: Yes Ortho: Carpal Tunnel surgery, 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 - Present Medications Home Medications: Ambulatory Orders Medication Instructions Recorded Confirmed Levothyroxine [Synthroid] 75 05/31/18 Losartan [Cozaar] 0 mg 05/31/18 buPROPion [Wellbutrin Sr] 1 05/31/18 cephALEXin [Keflex] 500 mg PO Q6H #24 capsule 05/31/18 traMADol [Ultram] 50 05/31/18 LORazepam [Ativan] 1 - 2 mg PO Q6HR PRN #20 tablet 06/29/20 Ondansetron Odt [Zofran] 4 mg TL Q6H PRN #10 tablet 06/29/20 ALPRAZolam [Alprazolam] 0.5 mg PO Q8H PRN #10 tablet 04/26/22 - Allergies Allergies/Adverse Reactions: Allergies Allergy/AdvReac Type Severity Reaction Status Date / Time codeine Allergy Edema Verified 08/18/22 16:00 ciprofloxacin [From Cipro] AdvReac joint pain Verified 08/18/22 16:00 Sulfa (Sulfonamide AdvReac Hives Verified 08/18/22 16:00 Antibiotics) - Social History Does the pt smoke?: No Smoking Status: Never smoker Does the pt drink ETOH?: Yes Does the pt have substance abuse?: No - Immunizations Immunizations are current?: Yes Immunizations: TDAP current <10years - POLST Patient has POLST: No PD ED PE NORMAL - Vitals Vital signs reviewed: Yes - General General: Alert and oriented X 3, No acute distress - HEENT HEENT: Other (Ecchymosis around the left eye. Negative braxton sign, Negative hemotympanum) - Neck Neck: Other. 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 She did endorse for being intoxicated at the time and presented to history of frequent/regular alcohol use/abuse. Nursing staff did inform me that some of her coworkers had expressed concern about her heavy drinking. She was afebrile and hemodynamically stable with a nonfocal nonlateralizing neurologic exam. The CT scan of her head and cervical spine did not demonstrate any acute traumatic injury. Had a long discussion with her about her CT findings as well as the concerns of her coworkers for alcohol abuse disorder. She was offered evaluation for detox/alcohol related treatment which she declined. She demonstrated decisional capacity and denied suicidal or homicidal ideation during my interview. At this time I will discharge for follow-up with primary care as needed with some contact information for local area detox facilities. She did request a work note and 1 was provided although she initially requested note that have been backdated for a few days. I did explain that I would not be able to do that but I could provide her with a note stating that she been seen in the emergency department today with return to work for tomorrow. Departure - Departure Disposition: 01 Home, Self Care Clinical Impression: Head injury, Alcohol abuse Instructions: ED Drug Abuse General Comments: [facility] Today in the emergency department your evaluated for any possible life- threatening medical emergency. The CT scan of your head and cervical spine did not show any acute injury. You were offered evaluation for local area detox programs. At this time you have indicated that you wish to go home. Below you will find some contact information for a local detox program please contact them as soon as possible to arrange for follow-up. If it anytime you have new or worsening symptoms please not hesitate to return. I to a stabilization facility/[facility] services [address] [place] [address] Forms: Activity restrictions Discharge Date/Time: 08/18/22 18:26
--- NOTE | 2022-08-18 17:12 | CT Report ---
PROCEDURE: HEAD WO INDICATIONS: fall 2 days ago, head pain TECHNIQUE: Noncontrast 4.5 mm thick angled axial sections acquired from the foramen magnum to the vertex. For r adiation dose reduction, the following was used: automated exposure control, adjustment of mA and/or kV according to patient size. COMPARISON: None. FINDINGS: Image quality: Excellent. CSF spaces: Basal cisterns are patent. No extra-axial fluid collections. Ventricles are normal in size and shape. Brain: No midline shift. No acute intracranial hemorrhage or mass effect. Scattered hypodensities in subcortical and periventricular white matter most compatible with chronic microvascular ischemic ranjeet nges. There is mild age-related cerebral and cerebellar parenchymal volume loss. Skull and face: Small left frontal scalp hematoma. Calvarium and visualized facial bones are intact, without suspicious lesions. Sinuses: Visualized sinuses and mastoids are clear. IMPRESSION: Small left frontal scalp hematoma. No skull fracture. No acute intracranial abnormality. Reviewed by: Sulaiman Durant MD on 08/18/2022 5:10 PM PDT Approved by: Sulaiman Durant MD on 08/18/2022 5:10 PM PDT Station ID: [id number]
--- NOTE | 2022-08-18 17:15 | CT Report ---
PROCEDURE: CERVICAL SPINE WO INDICATIONS: fall 2 days ago, neck pain TECHNIQUE: Noncontrast 3 mm thick sections acquired from the skull base to the T4 level. Sagittal and coronal r eformats were then constructed. For radiation dose reduction, the following was used: automated exp osure control, adjustment of mA and/or kV according to patient size. COMPARISON: Cervical spine CT 10/23/2017 FINDINGS: Image quality: Excellent. Bones: No acute fractures or dislocations. Small corticated ossification again seen adjacent to the tip of the dens, unchanged. Visualized superior ribs are intact. Mild reversal of the normal cervica l lordosis, which may be partially related to positioning. Multilevel disc degenerative changes are m ost prominent at the C4-5 and C5-6 levels. There is multilevel uncovertebral joint and facet hypertro phy. Soft tissues: Prevertebral soft tissues are normal in thickness. No paravertebral hematomas. No ap ical pneumothoraces. IMPRESSION: No acute cervical spine fracture or subluxation. Multilevel spondylosis. Reviewed by: Sulaiman Durant MD on 08/18/2022 5:13 PM PDT Approved by: Sulaiman Durant MD on 08/18/2022 5:13 PM PDT Station ID: [id number]
[2022-08-18 18:05] VITALS: BP 151/98
== END 2022-08-18 18:26 | disposition home or self-care (01) ==
LOC: ED 15:48
DX: S09.90XA Unspecified injury of head, initial encounter (principal); W19.XXXA Unspecified fall, initial encounter; F10.10 Alcohol abuse, uncomplicated
CPT/HCPCS: 99283; 99284

== ENCOUNTER 2022-08-20 09:42 | Emergency (ER) | payer BC ==
[2022-08-20 10:44] LABS: BASOPHILS % (AUTO) 0.5 %; HCT - HEMATOCRIT 38.7 % (37.0-47.0); LYMPHOCYTES # (AUTO) 0.5 10^3/uL (1.5-3.5); LYMPHOCYTES % (AUTO) 13.3 %; MEAN CORPUSCULAR HEMOGLOBIN 34.9 pg (27.0-31.0); MEAN CORPUSCULAR HGB CONC 33.6 g/dL (32.0-36.0); MONOCYTES # (AUTO) 0.4 10^3/uL (0.0-1.0); MONOCYTES % (AUTO) 9.2 %; NEUTROPHILS % (AUTO) 76.7 %; PLT - PLATELET COUNT 158 10^3/uL (130-450); RED BLOOD COUNT 3.72 10^6/uL (4.20-5.40); RED CELL DISTRIBUTION WIDTH 12.5 % (12.0-15.0); WHITE BLOOD COUNT 3.9 x10^3/uL (4.8-10.8)
[2022-08-20 10:57] LABS: ALBUMIN/GLOBULIN RATIO 1.4 (1.0-2.2); BILIRUBIN,TOTAL 1.5 mg/dL (0.2-1.0); CALCIUM 9.2 mg/dL (8.5-10.3); CREATININE 0.7 mg/dL (0.4-1.0); POTASSIUM 3.7 mmol/L (3.5-5.0); TOTAL PROTEIN 8.5 g/dL (6.7-8.2)
[2022-08-20] MEDS ORDERED: THIAMINE INJ 100 MG, MAGNESIUM SULFATE 2 GM, MULTIVITAMIN 10 ML, FOLIC ACID INJ 1 MG in... IV ONE ×5 (13:05)
[2022-08-20] MEDS ORDERED: DROPERIDOL 5 MG/2 ML VIAL IVP STA (13:05)
[2022-08-20] MEDS ORDERED: PHENobarbital 65 MG/ML VIAL IM STA (13:05)
--- NOTE | 2022-08-20 14:57 | ED Physician Documentation ---
PD HPI NVD - Stated complaint Stated Complaint: VOMITING - Chief complaint Chief Complaint: Abd Pain - History obtained from History obtained from: Patient - Additonal information Additional information: The patient comes to the emergency department chief complaint of nausea and vomiting that started 2 days ago, as well as tremors. The patient has a history of alcohol abuse and last drink was 2-1/2 days ago. Symptoms started about 12 hours after the last drink. Patient denies hallucinations. She is interested in information on detox. 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 - Present Medications Home Medications: Ambulatory Orders Medication Instructions Recorded Confirmed Levothyroxine [Synthroid] 75 05/31/18 Losartan [Cozaar] 0 mg 05/31/18 buPROPion [Wellbutrin Sr] 1 05/31/18 cephALEXin [Keflex] 500 mg PO Q6H #24 capsule 05/31/18 traMADol [Ultram] 50 05/31/18 LORazepam [Ativan] 1 - 2 mg PO Q6HR PRN #20 tablet 06/29/20 Ondansetron Odt [Zofran] 4 mg TL Q6H PRN #10 tablet 06/29/20 ALPRAZolam [Alprazolam] 0.5 mg PO Q8H PRN #10 tablet 04/26/22 Ondansetron Odt [Zofran] 4 mg TL Q6H PRN #10 tablet 08/20/22 diazePAM [Valium] 5 mg PO TID PRN #15 tablet 08/20/22 - Allergies Allergies/Adverse Reactions: Allergies Allergy/AdvReac Type Severity Reaction Status Date / Time codeine Allergy Edema Verified 08/18/22 16:00 ciprofloxacin [From Cipro] AdvReac joint pain Verified 08/18/22 16:00 Sulfa (Sulfonamide AdvReac Hives Verified 08/18/22 16:00 Antibiotics) - Social History Does the pt smoke?: No Smoking Status: Never smoker Does the pt drink ETOH?: Yes Does the pt have substance abuse?: No - Immunizations Immunizations are current?: Yes Immunizations: TDAP current <10years - POLST Patient has POLST: No PD ED PE NORMAL - Vitals Vital signs reviewed: Yes - General General: Alert and oriented X 3, No acute distress, Well developed/nourished - HEENT HEENT: Atraumatic, PERRL, EOMI, Moist mucous membranes - Neck Neck: Supple, no meningeal sign - Cardiac Cardiac: RRR, No murmur - Respiratory Respiratory: No respiratory distress, Clear bilaterally - Abdomen Abdomen: Soft, Non tender, Non distended - Derm Derm: Normal color, Warm and dry, No rash - Extremities Extremities: No deformity, No edema - Neuro Neuro: Alert and oriented X 3, relief pilot 2-12 intact, No motor deficit, No sensory deficit, Normal speech, Other (Mild fine tremors bilateral hands) - Psych Psych: Normal mood, Normal affect Results - Vitals Vitals: Vital Signs - 24 hr 08/20/22 08/20/22 08/20/22 12:23 14:00 15:13 Heart Rate 111 H 100 99 Respiratory 18 18 18 Rate Blood Pressure 137/109 H 128/100 H 139/100 H O2 Saturation 98 99 99 Oxygen O2 Source Room air - Labs Labs: Laboratory Tests 08/20/22 08/20/22 10:39 10:39 WBC 3.9 L RBC 3.72 L Hgb 13.0 Hct 38.7 MCV 104.0 H MCH 34.9 H MCHC 33.6 RDW 12.5 Plt Count 158 MPV 9.0 Neut # (Auto) 3.0 Lymph # (Auto) 0.5 L [place] # (Auto) 0.4 Eos # (Auto) 0.0 Baso # (Auto) 0.0 Absolute Nucleated RBC 0.00 Nucleated RBC % 0.0 Sodium 139 Potassium 3.7 Chloride 94 L Carbon Dioxide 30 Anion Gap 15.0 H BUN 10 Creatinine 0.7 Estimated GFR (MDRD) 89 Glucose 146 H Calcium 9.2 Total Bilirubin 1.5 H AST 80 H ALT 54 Alkaline Phosphatase 93 Total Protein 8.5 H Albumin 5.0 Globulin 3.5 Albumin/Globulin Ratio 1.4 Lipase 43 PD Medical Decision Making - ED course Complexity details: reviewed results, re-evaluated patient, considered differential, d/w patient ED course: The patient was given a banana bag and phenobarbital, as well as droperidol. She was found to be feeling better. I d/w her that the detox facilities are all self-referral, and that she will need to refer to the sheet we have given her to call for availability. We do not have a sexual assault social worker here at this time, but the pt understands that if she self-refers and urgent clearance is needed, we can offer this to her. The pt is stable for d/c home. I have prescribed a short course of Valium outpatient for alcohol withdrawal. Departure - Departure Disposition: Home, Self Care Clinical Impression: Alcohol withdrawal Qualifiers: Complication of substance-induced condition: uncomplicated Qualified Code(s): F 10.930 - Alcohol use, unspecified with withdrawal, uncomplicated Condition: Stable Instructions: ED Withdrawal Alcohol Prescriptions: diazePAM [Valium] 5 mg PO TID PRN #15 tablet PRN Reason: Spasms Ondansetron Odt [Zofran] 4 mg TL Q6H PRN #10 tablet PRN Reason: Nausea / Vomiting Comments: Your labs look good today. You have been treated for alcohol withdrawal with both fluids, vitamins and electrolytes, and medications. At this point in time, no beds are open at night to it, and the remainder of detox facilities are self referring. You have been given a list of these facilities to call and arrange for admission. They will let you know if they need anything else from you medically or if he may show up. Please take the medication for withdrawal that has been prescribed. The prescription has been electronically transmitted to the [facility] in [place] for you, as this is your pharmacy of choice on record. If you decide to drink again please do not take the medication at the same time, as this can be dangerous. Be sure to get plenty of nonalcoholic, clear liquids to drink. Discharge Date/Time: 08/20/22 15:34
[2022-08-20 15:14] VITALS: BP 139/100
== END 2022-08-20 15:34 | disposition home or self-care (01) ==
LOC: ED 09:42 → SUPCPDRO 09:42 → ED 15:34
DX: F10.930 Alcohol use, unspecified with withdrawal, uncomplicated (principal)
CPT/HCPCS: 36415; 80053; 83690; 85025; 96365; 96366; 96372; 96375; 99284; J3411

== ENCOUNTER 2022-12-10 18:56 | Outpatient (CLI) | payer BC, OTHER ==
--- NOTE | 2022-12-10 19:17 | XRAY Report ---
PROCEDURE: Shoulder 3 View LT INDICATIONS: LEFT SHOULDER STRAIN TECHNIQUE: 3 views of the shoulder were acquired. COMPARISON: None. FINDINGS: Bones: No fractures or dislocations. Degenerative changes of the left glenohumeral joint and acromi oclavicular joint No suspicious bony lesions. Visualized ribs appear intact. Soft tissues: No suspicious soft tissue calcifications. IMPRESSION: Degenerative changes of the acromioclavicular joint and glenohumeral joint. No acute bon y abnormality. Reviewed by: Gerald Goodwin on 12/10/2022 6:16 PM BETH Approved by: Gerald Goodwin on 12/10/2022 6:16 PM BETH Station ID: [id number]
== END 2022-12-10 23:54 | disposition home or self-care (01) ==
LOC: DI.S 18:56
PROVIDERS: ATTEND Physician Assistant Medical
DX: S46.012A Strain of muscle(s) and tendon(s) of the rotator cuff of left shoulder, initial encounter (principal); M19.012 Primary osteoarthritis, left shoulder

== ENCOUNTER 2024-01-14 19:41 | Emergency (ER) | payer BC, MEDICAID, OTHER ==
--- NOTE | 2024-01-14 20:21 | ED Physician Documentation ---
History of Present Illness - Stated complaint Stated Complaint: SWOLLEN LT LEG - Chief complaint Chief Complaint: General - Additonal information Additional information: Patient is a 53-year-old female with history of alcohol abuse presents to the emergency department with left leg swelling. Symptoms have been going on for a few weeks she was seen at walk-in clinic today had a negative ultrasound but was called on lab results for significantly low potassium level. Patient notes no cramping in extremities no heart palpitations no lightheadedness symptoms. She notes redness appears to be increasing of her left leg. She was given ant ibiotics for a cellulitis from walking but has not picked them up yet. She denies any fevers chills no nausea vomiting or diarrhea symptoms. She notes she is a chronic alcoholic drinker and does experience withdrawal symptoms when not drinking and drinks about 3 shots of tequila a day. 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 - Present Medications Home Medications: Ambulatory Orders Medication Instructions Recorded Confirmed Levothyroxine [Synthroid] 75 05/31/18 Losartan [Cozaar] 0 mg 05/31/18 buPROPion [Wellbutrin Sr] 1 05/31/18 cephALEXin [Keflex] 500 mg PO Q6H #24 capsule 05/31/18 traMADol [Ultram] 50 05/31/18 LORazepam [Ativan] 1 - 2 mg PO Q6HR PRN #20 tablet 06/29/20 Ondansetron Odt [Zofran] 4 mg TL Q6H PRN #10 tablet 06/29/20 ALPRAZolam [Alprazolam] 0.5 mg PO Q8H PRN #10 tablet 04/26/22 Ondansetron Odt [Zofran] 4 mg TL Q6H PRN #10 tablet 08/20/22 diazePAM [Valium] 5 mg PO TID PRN #15 tablet 08/20/22 - Allergies Allergies/Adverse Reactions: Allergies Allergy/AdvReac Type Severity Reaction Status Date / Time codeine Allergy Edema Verified 01/14/24 19:57 ciprofloxacin [From Cipro] AdvReac joint pain Verified 01/14/24 19:57 Sulfa (Sulfonamide AdvReac Hives Verified 01/14/24 19:57 Antibiotics) - Social History Does the pt smoke?: No Smoking Status: Never smoker Does the pt drink ETOH?: Yes Does the pt have substance abuse?: No - Immunizations Immunizations are current?: Yes Immunizations: TDAP current <10years - POLST Patient has POLST: No PD ED PE NORMAL - Vitals Vital signs reviewed: Yes - General General: Alert and oriented X 3 - HEENT HEENT: Atraumatic, PERRL - Neck Neck: Supple, no meningeal sign - Cardiac Cardiac: RRR, No murmur, No gallop, No rub - Respiratory Respiratory: No respiratory distress, Clear bilaterally - Abdomen Abdomen: Normal bowel sounds, Non tender, Non distended - Back Back: No CVA TTP - Derm Derm: Normal color, Other (Erythema noted to left leg no palpable inguinal lymphadenopathy mild swelling but this appears equal bilaterally and no significant pain edema. Pulses intact in lower extremities no appreciable vesicles or lesions to left leg.) - Neuro Neuro: Alert and oriented X 3 Results - Vitals Vitals: Oxygen O2 Source Room air - EKG (time done) 2016 EKG releavant findings:: EKG personally interpreted by author of this note. Relevant findings are: Rate: Rate (enter#) Intervals: Normal [place] Ischemia: Normal ST segments Compare to prior EKG: Unchanged from prior EKG Computer interpretation: Agree with computer - Labs Labs: Laboratory Tests 01/14/24 01/14/24 01/14/24 20:20 20:20 20:20 WBC 2.8 L RBC 3.47 L Hgb 12.5 Hct 37.0 MCV 106.6 H MCH 36.0 H MCHC 33.8 RDW 14.5 Plt Count 204 MPV 8.6 Neut # (Auto) 1.3 L Lymph # (Auto) 0.9 L [place] # (Auto) 0.6 Eos # (Auto) 0.0 Baso # (Auto) 0.0 Absolute Nucleated RBC 0.00 Band Neuts % (Manual) Not Reportable Abnorm Lymph % (Manual) Not Reportable Nucleated RBC % 0.0 Neutrophils # (Manual) Not Reportable Lymphocytes # (Manual) Not Reportable Monocytes # (Manual) Not Reportable Eosinophils # (Manual) Not Reportable Basophils # (Manual) Not Reportable Differential Comment MANUAL=AUTO DIFF Manual Slide Review Indicated Platelet Estimate NORMAL (130-450,000) Platelet Morphology NORMAL APPEARANCE RBC Morph Micro Appear NORMAL APPEARANCE Sodium 139 Potassium 2.7 L Chloride 98 L Carbon Dioxide 29 Anion Gap 12.0 BUN 2 L Creatinine 0.6 Estimated GFR (MDRD) 105 Glucose 105 H Calcium 9.1 Magnesium 1.3 L Total Bilirubin 0.6 AST 101 H ALT 64 H Alkaline Phosphatase 115 Troponin I High Sens 14.7 Total Protein 6.6 Albumin 3.8 Globulin 2.8 Albumin/Globulin Ratio 1.4 Lipase 20 PD Medical Decision Making - ED course Complexity details: reviewed old records, reviewed results ED course: Patient is a 53-year-old female presents with left leg cellulitis diagnosed at walk-in clinic after negative ultrasound she was called with the results later and noted she was hypokalemic to 2.9. Patient on arrival denies any symptoms left leg cellulitis with erythema has been going on for about few weeks but no fevers she denies any nausea vomiting or diarrhea symptoms. She has a chronic alcoholic drinker does experience withdrawal symptoms when not drinking does about 3 shots per day. Vitals on arrival are stable. Physical exam shows erythema to left leg with warmth to touch but no significant swelling compared to right leg pulses intact no palpable lesion in inguinal lymphadenopathy no streaking up the leg. Basic labs and chest x-ray obtained here in the emergency department EKG on arrival does show normal rate sinus rhythm but prolonged QTc of 525 here in emergency department. Labs show leukopenia this appears stable for patient potassium returns at 2.7 patient given potassium infusions and magnesium returns at 1.3 we will give magnesium infusions as well. This could be secondary to patient's history of chronic alcohol use. Given patient's cellulitis and no antibiotics today will give first dose IV. 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 Patient received potassium and magnesium infusions repeat EKG performed here in the emergency department to ensure resolution of QTc after and be infusions performed. Patient taken over by Dr. Perera for discharge and re-evaluation of EKG Departure - Departure Disposition: 01 Home, Self Care Clinical Impression: Transaminitis, Hypokalemia, Hypomagnesemia, Left leg cellulitis Condition: Stable Instructions: Cellulitis Dc, ED Potassium Deficiency Comments: Finish all of your antibiotics as prescribed. Make sure to eat potassium rich foods and a balanced diet. Follow up with your primary care doctor Forms: PCP List Discharge Date/Time: 01/15/24 00:00
[2024-01-14 20:28] LABS: BASOPHILS % (AUTO) 0.7 %; HGB - HEMOGLOBIN 12.5 g/dL (12.0-16.0); LYMPHOCYTES # (AUTO) 0.9 10^3/uL (1.5-3.5); LYMPHOCYTES % (AUTO) 31.4 %; MEAN CORPUSCULAR HGB CONC 33.8 g/dL (32.0-36.0); MEAN CORPUSCULAR VOLUME 106.6 fL (81.0-99.0); MEAN PLATELET VOLUME 8.6 fL (7.9-10.8); MONOCYTES # (AUTO) 0.6 10^3/uL (0.0-1.0); MONOCYTES % (AUTO) 21.2 %; NEUTROPHILS # (AUTO) 1.3 10^3/uL (1.5-6.6); NEUTROPHILS % (AUTO) 46.7 %; PLT - PLATELET COUNT 204 10^3/uL (130-450); RED BLOOD COUNT 3.47 10^6/uL (4.20-5.40); RED CELL DISTRIBUTION WIDTH 14.5 % (12.0-15.0); WHITE BLOOD COUNT 2.8 x10^3/uL (4.8-10.8)
[2024-01-14 20:34] LABS: SLIDE REVIEW? Indicated
[2024-01-14 20:51] LABS: ALBUMIN 3.8 g/dL (3.2-5.5); ALBUMIN/GLOBULIN RATIO 1.4 (1.0-2.2); BILIRUBIN,TOTAL 0.6 mg/dL (0.2-1.0); CALCIUM 9.1 mg/dL (8.5-10.3); CREATININE 0.6 mg/dL (0.6-1.3); POTASSIUM 2.7 mmol/L (3.5-4.5); TOTAL PROTEIN 6.6 g/dL (6.4-8.9); TROPONIN I HIGH SENSITIVITY 14.7 ng/L (2.3-14.8)
[2024-01-14] MEDS: POTASSIUM CHLORIDE 20 MEQ TABLET PO ONE (20:52)
[2024-01-14] MEDS: POTASSIUM CHLORIDE 20 MEQ TABLET PO STA (20:52)
[2024-01-14] MEDS: POTASSIUM CHLOR 10 MEQ/100 ML 10 MEQ/100 ML BAG IV STA (20:52)
--- NOTE | 2024-01-14 20:56 | XRAY Report ---
PROCEDURE: Chest 1V INDICATIONS: Chest pain TECHNIQUE: One view of the chest was acquired. COMPARISON: None. FINDINGS: Surgical changes and devices: None. Lungs and pleura: No pleural effusions or pneumothorax. Lungs are clear. Mediastinum: Mediastinal contours appear normal. Heart size is normal. Bones and chest wall: No suspicious bony lesions. Overlying soft tissues appear unremarkable. IMPRESSION: No acute cardiopulmonary process. Reviewed by: Negro Robb MD on 01/14/2024 8:54 PM PDT Approved by: Negro Robb MD on 01/14/2024 8:54 PM PDT Station ID: [id number]
[2024-01-14 21:12] LABS: RBC MORPHOLOGY (MULTIPLE) NORMAL APPEARANCE (NORMAL)
[2024-01-14 21:13] LABS: DIFFERENTIAL COMMENT MANUAL=AUTO DIFF; PLATELET ESTIMATE, MANUAL NORMAL (130-450,000) (NORMAL); PLATELET MORPHOLOGY NORMAL APPEARANCE (NORMAL)
[2024-01-14] MEDS: MAGNESIUM SULFATE 1 GM/2 ML VIAL IVP STA (21:52)
[2024-01-14] MEDS: SODIUM CHLORIDE 0.9% 1,000 ML IV STA (21:55)
[2024-01-14] MEDS: MAGNESIUM SULFATE 2 GRAM 2 GM/50 ML BAG IV ONE (21:55)
[2024-01-14 22:41] VITALS: O2SAT 98
[2024-01-14] MEDS ORDERED: cefTRIAXone 1 GM VIAL ONE (23:00)
[2024-01-14] MEDS: cefTRIAXone 1 GM in SODIUM CHLORIDE 0.9% MINIBAG 100 ML IV SCH (23:02)
--- NOTE | 2024-01-14 23:24 | ED Physician Documentation ---
ED Addendum - Addendum Addendum: 01/14/24 23:55 Care of patient signed out to me. Independent review of patient and chart performed by myself. Patient has received oral and IV potassium, EKG shows she has persistent QTc prolongation, however it is improving. Patient states that she feels overall tired and would like to go home. Antibiotics are at the pharmacy.
[2024-01-15 00:07] VITALS: BP 140/88
== END 2024-01-15 | disposition home or self-care (01) ==
LOC: ED 19:41
DX: L03.116 Cellulitis of left lower limb (principal); R74.01 Elevation of levels of liver transaminase levels; E87.6 Hypokalemia; E83.42 Hypomagnesemia; E03.9 Hypothyroidism, unspecified; M32.9 Systemic lupus erythematosus, unspecified; Z79.899 Other long term (current) drug therapy
CPT/HCPCS: 36415; 71045; 80053; 83690; 83735; 84484; 85025; 93005; 96365; 96366; 96367; 96368; 99284; A9270

== ENCOUNTER 2024-01-19 19:24 | Emergency (ER) | payer MEDICAID ==
[2024-01-19 20:08] LABS: BASOPHILS % (AUTO) 0.4 %; EOSINOPHILS # (AUTO) 0.2 10^3/uL (0.0-0.7); EOSINOPHILS % (AUTO) 3.3 %; HGB - HEMOGLOBIN 12.3 g/dL (12.0-16.0); LYMPHOCYTES # (AUTO) 0.4 10^3/uL (1.5-3.5); LYMPHOCYTES % (AUTO) 7.4 %; MEAN CORPUSCULAR HEMOGLOBIN 26.6 pg (27.0-31.0); MEAN CORPUSCULAR HGB CONC 31.5 g/dL (32.0-36.0); MEAN CORPUSCULAR VOLUME 84.4 fL (81.0-99.0); MEAN PLATELET VOLUME 11.8 fL (7.9-10.8); MONOCYTES # (AUTO) 0.3 10^3/uL (0.0-1.0); MONOCYTES % (AUTO) 6.1 %; NEUTROPHILS # (AUTO) 4.5 10^3/uL (1.5-6.6); NEUTROPHILS % (AUTO) 82.4 %; PLT - PLATELET COUNT 168 10^3/uL (130-450); RED BLOOD COUNT 4.62 10^6/uL (4.20-5.40); RED CELL DISTRIBUTION WIDTH 14.3 % (12.0-15.0); WHITE BLOOD COUNT 5.4 x10^3/uL (4.8-10.8)
[2024-01-19 20:24] LABS: ALBUMIN/GLOBULIN RATIO 1.3 (1.0-2.2); BILIRUBIN,TOTAL 0.7 mg/dL (0.2-1.0); CALCIUM 9.3 mg/dL (8.5-10.3); CREATININE 0.8 mg/dL (0.6-1.3); POTASSIUM 4.2 mmol/L (3.5-4.5)
--- NOTE | 2024-01-19 20:35 | ED Physician Documentation ---
History of Present Illness - Stated complaint Stated Complaint: /FATIGUE - Chief complaint Chief Complaint: General - History obtained from History obtained from: Patient - Additonal information Additional information: HPI from patient. Patient complains of approximate 2 weeks of left lower extremity swelling. She was evaluated 5 days ago for this by her PCP and had an outpatient ultrasound which was negative for DVT. Per patient's description, because there was some redness of the leg, she was prescribed Keflex for possible cellulitis. She had outpatient blood work drawn, subsequently called by PCPs office and told to come to the emergency department that same day for low potassium, low magnesium levels. She was treated and released from this ER after being given IV potassium and magnesium. CXR on that ED visit was unremarkable. She presents at this time due to chief complaint of generalized malaise and fatigue. She is also describing nausea and vomiting, dyspnea on exertion. The symptoms have been over the past 2 to 3 days without inciting event.Past medical history includes alcoholism; patient says her last alcohol intake was earlier today. She also has hypothyroidism and SLE. She denies fever, pain (including chest, abdominal). Review of Systems Constitutional: reports: Fatigue. denies: Fever, Chills, Myalgias, Sweats Cardiac: reports: Reviewed and negative Respiratory: reports: Dyspnea. denies: Cough, Hemoptysis, Wheezing GI: reports: Nausea, Vomiting. 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 - Present Medications Home Medications: Ambulatory Orders Medication Instructions Recorded Confirmed Levothyroxine [Synthroid] 75 05/31/18 Losartan [Cozaar] 0 mg 05/31/18 buPROPion [Wellbutrin Sr] 1 05/31/18 cephALEXin [Keflex] 500 mg PO Q6H #24 capsule 05/31/18 traMADol [Ultram] 50 05/31/18 LORazepam [Ativan] 1 - 2 mg PO Q6HR PRN #20 tablet 06/29/20 Ondansetron Odt [Zofran] 4 mg TL Q6H PRN #10 tablet 06/29/20 ALPRAZolam [Alprazolam] 0.5 mg PO Q8H PRN #10 tablet 04/26/22 Ondansetron Odt [Zofran] 4 mg TL Q6H PRN #10 tablet 08/20/22 diazePAM [Valium] 5 mg PO TID PRN #15 tablet 08/20/22 - Allergies Allergies/Adverse Reactions: Allergies Allergy/AdvReac Type Severity Reaction Status Date / Time codeine Allergy Edema Verified 01/19/24 19:55 ciprofloxacin [From Cipro] AdvReac joint pain Verified 01/19/24 19:55 Sulfa (Sulfonamide AdvReac Hives Verified 01/19/24 19:55 Antibiotics) - Social History Does the pt smoke?: No Smoking Status: Never smoker Does the pt drink ETOH?: Yes Does the pt have substance abuse?: No - Immunizations Immunizations are current?: Yes Immunizations: TDAP current <10years - POLST Patient has POLST: No PD ED PE NORMAL - Vitals Vital signs reviewed: Yes - General General: Alert and oriented X 3, No acute distress, Well developed/nourished - HEENT HEENT: Moist mucous membranes - Cardiac Cardiac: RRR - Respiratory Respiratory: No respiratory distress, Clear bilaterally - Abdomen Abdomen: Soft, Non tender, Non distended PD ED PE EXPANDED - Cardiac Cardiac: Tachy, Regular Rhythm - Extremities Extremities: Pedal edema L (mild pitting edema mid-lower left lower leg to foot; there is mild, poorly-marginated flat erythema of the mid/distal left lower leg) Results - Vitals Vitals: Oxygen O2 Source Room air - EKG (time done) No standard instances EKG releavant findings:: EKG personally interpreted by author of this note. Relevant findings are: Rate: Rate (enter#) (115) Rhythm: Sinus tachycardia [place]: Normal Intervals: Normal [place] QRS: Normal Ischemia: Normal ST segments, Non specific changes (flat T III, aVF, V5 and V6) - Labs Labs: Laboratory Tests 08/14/24 08/14/24 08/14/24 20:00 20:00 20:03 WBC 5.4 RBC 4.62 Hgb 12.3 Hct 39.0 MCV 84.4 MCH 26.6 L MCHC 31.5 L RDW 14.3 Plt Count 168 MPV 11.8 H Neut # (Auto) 4.5 Lymph # (Auto) 0.4 L [place] # (Auto) 0.3 Eos # (Auto) 0.2 Baso # (Auto) 0.0 Absolute Nucleated RBC 0.00 Nucleated RBC % 0.0 D-Dimer Sodium Potassium Chloride Carbon Dioxide Anion Gap BUN Creatinine Estimated GFR (MDRD) Glucose Calcium Magnesium Total Bilirubin AST ALT Alkaline Phosphatase Total Protein Albumin Globulin Albumin/Globulin Ratio Lipase TSH Urine Color YELLOW Urine Clarity TURBID Urine pH 6.0 Ur Specific [place] 1.010 Urine Protein 30 H Urine Glucose (UA) NEGATIVE Urine Ketones TRACE Urine Occult Blood NEGATIVE Urine Nitrite NEGATIVE Urine Bilirubin SMALL H Urine Urobilinogen 0.2 (NORMAL) Ur Leukocyte Esterase SMALL H Urine RBC 0-5 Urine WBC 0-3 Ur Squamous Epith Cells MANY Squamous H Amorphous Sediment Moderate Urine Bacteria Rare Ur Microscopic Review INDICATED Urine Culture Comments NOT INDICATED Urine HCG, Qual NEGATIVE 01/19/24 01/19/24 01/19/24 20:03 20:03 21:09 WBC RBC Hgb Hct MCV MCH MCHC RDW Plt Count MPV Neut # (Auto) Lymph # (Auto) [place] # (Auto) Eos # (Auto) Baso # (Auto) Absolute Nucleated RBC Nucleated RBC % D-Dimer 221.6 Sodium 135 Potassium 4.2 Chloride 100 L Carbon Dioxide 30 Anion Gap 5.0 L BUN 16 Creatinine 0.8 Estimated GFR (MDRD) 75 L Glucose 99 Calcium 9.3 Magnesium 1.6 L Total Bilirubin 0.7 AST 20 ALT 14 Alkaline Phosphatase 77 Total Protein 7.0 Albumin 4.0 Globulin 3.0 Albumin/Globulin Ratio 1.3 Lipase 10 L TSH Urine Color Urine Clarity Urine pH Ur Specific [place] Urine Protein Urine Glucose (UA) Urine Ketones Urine Occult Blood Urine Nitrite Urine Bilirubin Urine Urobilinogen Ur Leukocyte Esterase Urine RBC Urine WBC Ur Squamous Epith Cells Amorphous Sediment Urine Bacteria Ur Microscopic Review Urine Culture Comments Urine HCG, Qual 01/19/24 21:09 WBC RBC Hgb Hct MCV MCH MCHC RDW Plt Count MPV Neut # (Auto) Lymph # (Auto) [place] # (Auto) Eos # (Auto) Baso # (Auto) Absolute Nucleated RBC Nucleated RBC % D-Dimer Sodium Potassium Chloride Carbon Dioxide Anion Gap BUN Creatinine Estimated GFR (MDRD) Glucose Calcium Magnesium Total Bilirubin AST ALT Alkaline Phosphatase Total Protein Albumin Globulin Albumin/Globulin Ratio Lipase TSH 2.14 Urine Color Urine Clarity Urine pH Ur Specific [place] Urine Protein Urine Glucose (UA) Urine Ketones Urine Occult Blood Urine Nitrite Urine Bilirubin Urine Urobilinogen Ur Leukocyte Esterase Urine RBC Urine WBC Ur Squamous Epith Cells Amorphous Sediment Urine Bacteria Ur Microscopic Review Urine Culture Comments Urine HCG, Qual PD Medical Decision Making - ED course Complexity details: reviewed results, re-evaluated patient, considered differential, d/w patient ED course: No concerning or diagnostic test results on tonight's workup. This includes unremarkable CBC, ER abdominal panel. Specifically, including normal potassium. Magnesium is minimally below normal range (1.6). Normal TSH and normal D- dimer. Her tachycardia significantly improved with IV fluids, with some upper- 90s bpm late in ED stay (but mostly lower 100s). In my discussion with patient, she expressed her strong suspicion that her nausea and vomiting as well as her fast heart rate are due to alcohol withdrawal. Nonetheless, she is not otherwise exhibiting physical exam findings of withdrawal such as diaphoresis, tremulousness. I did offer benzodiazepines (specifically IV lorazepam), which she declines. The cause of her symptoms is not apparent at this time. Results discussed with patient, return precautions reviewed. Advised to contact her PCP in the morning to arrange for the next available appointment for follow-up/reevaluation. Departure - Departure Disposition: 01 Home, Self Care Clinical Impression: Fatigue Qualifiers: Fatigue type: unspecified Qualified Code(s): R53.83 - Other fatigue Dyspnea Qualifiers: Dyspnea type: dyspnea on exertion Qualified Code(s): R06.09 - Other forms of dyspnea Condition: Good Instructions: ED Dyspnea Shortness of Breath, ED Weakness UKO Comments: There were no concerning nor diagnostic findings on tonight's test, including the blood tests and urinalysis. The cause of your symptoms is not apparent at this time. The tests undertaken tonight included potassium (normal) and magnesium (just below the normal range, not nearly low enough to explain your symptoms). Follow-up with your primary care provider, next available appointment, for reevaluation. Discharge Date/Time: 01/19/24 23:01
[2024-01-19] MEDS: ONDANSETRON 4 MG/2 ML VIAL IVP STA (21:25)
[2024-01-19] MEDS: SODIUM CHLORIDE 0.9% 1,000 ML IV STA (21:25)
[2024-01-19 21:56] LABS: BILIRUBIN,URINE SMALL (NEGATIVE); CLARITY,URINE TURBID (CLEAR); GLUCOSE, URINE (UA) NEGATIVE (NEGATIVE); KETONES,URINE (UA) TRACE mg/dL (NEGATIVE); LEUKOCYTE ESTERASE, URINE SMALL (NEGATIVE); NITRITE,URINE NEGATIVE (NEGATIVE); OCCULT BLOOD,URINE NEGATIVE (NEGATIVE); PROTEIN,URINE 30 mg/dL (NEGATIVE); UROBILINOGEN,URINE 0.2 (NORMAL) E.U./dL (NORMAL)
[2024-01-19 21:58] LABS: HCG UR QUAL NEGATIVE
[2024-01-19 22:11] VITALS: O2SAT 98
[2024-01-19 22:20] LABS: AMORPHOUS SEDIMENT,UR Moderate /LPF; BACTERIA,URINE Rare /HPF (None Seen); RBC,URINE 0-5 /HPF (0-5); SQUAMOUS EPITHELIAL CELL,UR MANY Squamous (<= Few); WBC,URINE 0-3 /HPF (0-5)
[2024-01-19 23:01] VITALS: BP 147/68
== END 2024-01-19 23:01 | disposition home or self-care (01) ==
LOC: ED 19:24
DX: R53.83 Other fatigue (principal); R06.09 Other forms of dyspnea; F10.20 Alcohol dependence, uncomplicated
CPT/HCPCS: 36415; 80053; 81001; 81003; 81025; 83690; 83735; 84443; 85025; 85379; 87086; 93005; 96361; 96374; 99283

== ENCOUNTER 2024-02-05 19:50 | Emergency (ER) | payer MEDICAID ==
[2024-02-05] MEDS: LORazepam 2 MG/ML VIAL IVP STA (20:17)
--- NOTE | 2024-02-05 21:26 | ED Physician Documentation ---
History of Present Illness - Stated complaint Stated Complaint: L LEG INFECTION - Chief complaint Chief Complaint: General - History obtained from History obtained from: Patient - Additonal information Additional information: 53yF with pmh recent course of keflex and then augmentin for LLE infection with improvement in cellulitis, p/w bug bite to the L ankle 4 days ago causing swelling, itching and blanching erythema to the ankle and pain that moves up the back of the ankle and lower calf. swelling has improved over the past couple days but she called a nurse line that recommended she come in for reevaluation. denies fever, calf swelling, estrogen/testosterone use, recent Travel or prolonged bedrest, active cancer, or prior history of DVT or PE. 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 - Present Medications Home Medications: Ambulatory Orders Medication Instructions Recorded Confirmed Levothyroxine [Synthroid] 75 05/31/18 Losartan [Cozaar] 0 mg 05/31/18 buPROPion [Wellbutrin Sr] 1 05/31/18 cephALEXin [Keflex] 500 mg PO Q6H #24 capsule 05/31/18 traMADol [Ultram] 50 05/31/18 LORazepam [Ativan] 1 - 2 mg PO Q6HR PRN #20 tablet 06/29/20 Ondansetron Odt [Zofran] 4 mg TL Q6H PRN #10 tablet 06/29/20 ALPRAZolam [Alprazolam] 0.5 mg PO Q8H PRN #10 tablet 04/26/22 Ondansetron Odt [Zofran] 4 mg TL Q6H PRN #10 tablet 08/20/22 diazePAM [Valium] 5 mg PO TID PRN #15 tablet 08/20/22 - Allergies Allergies/Adverse Reactions: Allergies Allergy/AdvReac Type Severity Reaction Status Date / Time codeine Allergy Edema Verified 02/05/24 19:52 ciprofloxacin [From Cipro] AdvReac joint pain Verified 02/05/24 19:52 Sulfa (Sulfonamide AdvReac Hives Verified 02/05/24 19:52 Antibiotics) - Social History Does the pt smoke?: No Smoking Status: Never smoker Does the pt drink ETOH?: Yes Does the pt have substance abuse?: No - Immunizations Immunizations are current?: Yes Immunizations: TDAP current <10years - POLST Patient has POLST: No PD ED PE NORMAL - Vitals Vital signs reviewed: Yes - General General: Alert and oriented X 3, No acute distress, Well developed/nourished - HEENT HEENT: Atraumatic, PERRL, EOMI - Neck Neck: Supple, no meningeal sign - Derm Derm: Normal color, Warm and dry, No rash, Other (No erythema) - Extremities Extremities: No deformity, No tenderness to palpate, Normal ROM s pain, No edema, No calf tenderness / cord, Other (CSM intact bilateral lower extremity) Results - Vitals Vitals: Vital Signs - 24 hr 02/05/24 19:52 Temperature 36.6 C Heart Rate 89 Respiratory 17 Rate Blood Pressure 179/106 H O2 Saturation 100 Oxygen O2 Source Room air PD Medical Decision Making - ED course ED course: 53-year-old woman presenting for evaluation of left lower extremity "infection". She recent completed 2 rounds of antibiotics and that was bit by a bug 4 days ago. There are no residual issues evident on exam and she has a completely normal left lower extremity. Reassurance was provided but patient was still concerned that she may have a DVT therefore screening questions were enacted which she answered no for all of them. Was determined that she is low risk for DVT and therefore her DVT study was canceled. Plan is for her to follow-up outpatient with her autoimmune specialist routinely. Return precautions given. Departure - Departure Disposition: 01 Home, Self Care Clinical Impression: Extremity pain Condition: Stable Comments: You were seen in the emergency department for pain to the left lower extremity. There does not appear to be active infection and you are not at a high risk for DVT. Please follow-up with your primary care provider and autoimmune specialist and return to the emergency department if you have any new or worsening symptoms or other concerns. Forms: PCP List
[2024-02-05 22:05] VITALS: BP 160/100; O2SAT 99
== END 2024-02-05 21:53 | disposition home or self-care (01) ==
LOC: ED 19:50
DX: M25.572 Pain in left ankle and joints of left foot (principal)
CPT/HCPCS: 99281; 99282